=== PATIENT | female | born 1970 | race Two or more races ===

== ENCOUNTER 2023-12-07 18:31 | Emergency (ER) | payer OTHER ==
[~2023-12-07] VITALS: Ht 167.6 cm; Wt 75.3 kg
[2023-12-07] MEDS ORDERED: GLIMEPIRIDE2 M1 PO (18:49)
[2023-12-07] MEDS ORDERED: DOXAZOSIN MESYLA2 MG PO (18:49)
[2023-12-07] MEDS ORDERED: FLUMAZENIL0.1 MG/1 M IV (18:49)
[2023-12-07] MEDS ORDERED: LOSARTAN POTASS25 MG PO (18:50)
[2023-12-07 23:28] LABS: HEMATOCRIT 44.3 % (36.0-45.00); MEAN CORPUSCULAR HEMOGLOBIN 30.9 pg (27.00-32.0); MEAN CORPUSCULAR HGB CONC 33.9 g/dl (32.0-36.0); PLATELET COUNT 192 K/uL (150-450); RED BLOOD COUNT 4.87 M/uL (4.00-6.00); RED CELL DISTRIBUTION WIDTH 13.3 % (11.5-14.5)
== END 2023-12-08 00:34 | disposition home or self-care (01) ==
LOC: ER 18:31
PROVIDERS: Emergency Medicine
DX: J09.X2 Influenza due to identified novel influenza A virus with other respiratory manifestations (principal); J06.9 Acute upper respiratory infection, unspecified; Z20.822 Contact with and (suspected) exposure to COVID-19